=== PATIENT | male | born 1935 | race Caucasian/White ===

== ENCOUNTER 2017-12-21 09:00 | Outpatient (RCR) | payer MEDICARE, MEDICAID ==
[~2017-12-21] VITALS: Ht 165.1 cm; Wt 81.6 kg
[~2017-12-21 09:00] MED LIST: [UNRECOGNIZED DRUG - REMARK]
[2017-12-24] MEDS ORDERED: Lidocaine 1% MPF 10mg/ml 5ml INJ ONE (12:00)
== END 2018-01-05 | disposition home or self-care (01) ==
LOC: WCC 09:00
DX: L98.492 Non-pressure chronic ulcer of skin of other sites with fat layer exposed (principal); E11.622 Type 2 diabetes mellitus with other skin ulcer; Z85.038 Personal history of other malignant neoplasm of large intestine; J98.4 Other disorders of lung
CPT/HCPCS: 11042; 11100; 87070; 87205; 97605

== ENCOUNTER 2018-01-11 08:49 | Outpatient (RCR) | payer MEDICARE, MEDICAID | END 2018-02-05 | disposition home or self-care (01) | LOC: WCC 08:49 | DX: L98.492 Non-pressure chronic ulcer of skin of other sites with fat layer exposed (principal); E11.622 Type 2 diabetes mellitus with other skin ulcer; L03.114 Cellulitis of left upper limb; E11.9 Type 2 diabetes mellitus without complications; J98.4 Other disorders of lung; Z85.038 Personal history of other malignant neoplasm of large intestine | CPT/HCPCS: 11042; 15271; 87070; 87181; 87205; 97605; Q4133 ==

== ENCOUNTER 2018-02-10 12:50 | Outpatient (RCR) | payer MEDICARE, MEDICAID ==
[~2018-02-10] VITALS: Ht 165.1 cm; Wt 81.6 kg
[2018-02-25] MEDS ORDERED: Hydrocortisone 1% Cr 15gm TOPIC ONE (12:15)
== END 2018-03-07 | disposition home or self-care (01) ==
LOC: WCC 12:50
DX: L98.492 Non-pressure chronic ulcer of skin of other sites with fat layer exposed (principal); E11.622 Type 2 diabetes mellitus with other skin ulcer; L03.114 Cellulitis of left upper limb; Z85.038 Personal history of other malignant neoplasm of large intestine; Z87.898 Personal history of other specified conditions; E11.9 Type 2 diabetes mellitus without complications
CPT/HCPCS: 11042; 11043; G0463